=== PATIENT | male | born 1960 | race Caucasian/White ===

== ENCOUNTER 2020-12-17 20:47 | Inpatient (IN) | payer OTHER ==
[~2020-12-17] VITALS: Ht 182.9 cm; Wt 115.8 kg
--- NOTE | 2020-12-17 21:24 | Progress Note ---
Progress Note 60yo male transferred from [facility] ER due to AF RVR. Has h/o chornic AF. Cardioverted in ER x 2 due to INR therapeutic then went into SVT (has h/o SVT also) which was resistant so placed on Amiodarone drip and converted and remains stable. Dr Escobedo updated on his case. Orders placed. KALYANI GO DO Dec 17, 2020 21:24
[2020-12-17] MEDS ORDERED: LOPERAMIDE 2 MG (IMODIUM) TABLET PO PRN (21:30)
[2020-12-17] MEDS ORDERED: ONDANSETRON 4 MG/2 ML (SDV) Z0FRAN IVP PRN (21:30)
[2020-12-17] MEDS ORDERED: CALCIUM CARBONATE 500 MG (TUMS) TAB.CHEW PO PRN (21:30)
[2020-12-17] MEDS ORDERED: ACETAMINOPHEN 500 MG TAB (TYLENOL) PO PRN (21:30)
[2020-12-17] MEDS ORDERED: MELATONIN 3 MG TABLET PO PRN (21:30)
[2020-12-17] MEDS ORDERED: DOCUSATE SODIUM 100 MG (COLACE) CAP PO PRN (21:30)
[2020-12-17] MEDS ORDERED: fentaNYL INJ 100 MCG/2 ML AMP IVP PRN (21:30)
[2020-12-17] MEDS ORDERED: HYDROcodone/APAP 5 MG/325 MG (LORTAB) TAB PO PRN (21:30)
[2020-12-17] MEDS ORDERED: diphenhydrAMINE 25 MG TAB (BENADRYL) PO PRN (21:30)
[2020-12-17] MEDS ORDERED: ONDANSETRON 4 MG (ZOFRAN) ORAL DISSOLVE TAB PO PRN (21:30)
[2020-12-17] MEDS: AMIODARONE INJECTION 450 MG in D5W IV SOLUTION (EXCEL) 250 ML IV SCH (23:15)
[2020-12-18] MEDS ORDERED: dilTIAZem DRIP PRE-MIX 125 ML IV SCH
--- NOTE | 2020-12-18 00:05 | Tele-ICU Progress Note ---
Progress Note 60M with chronic afib, h/o SVT, transferred from OSH for Afib with RVR. INR was therapuetic, attempted cardioversion x2 after which converted to SVT. Placed on amio gtt and cardizem gtt and transferred for cardiology evaluation. On arrival alert, comfortable. HR still 160s, otherwise HD stable. About 10 min after arrival converted to sinus 70s, BP remained 120s/70s. Without current complaints. Amio and cardizem ongoing. Focused Exam Height, Weight, BMI Height: '" Weight: lbs. oz. kg; BMI Method: MEG FIERRO MD Dec 18, 2020 00:05
[2020-12-18] MEDS ORDERED: VIT D (01:13)
[2020-12-18] MEDS ORDERED: OMEP40CA6 PO (01:13)
[2020-12-18] MEDS ORDERED: MTP100TCR PO (01:13)
[2020-12-18] MEDS ORDERED: DILT-109 PO (01:13)
[2020-12-18] MEDS ORDERED: MULT-974 PO (01:13)
[2020-12-18] MEDS ORDERED: LISI40TA9 PO (01:13)
[2020-12-18] MEDS ORDERED: WARF-48 PO (01:13)
[2020-12-18] MEDS ORDERED: ATOR20TA49 PO (01:13)
[2020-12-18] MEDS ORDERED: METF-397 PO (01:13)
[2020-12-18] MEDS ORDERED: MAGN100T5 PO (01:13)
[2020-12-18 04:02] LABS: BASOPHILS # (AUTO) 0.1 10^3/uL (0.0-0.1); BASOPHILS % (AUTO) 0 % (0-10); EOSINOPHILS # (AUTO) 0.1 10^3/uL (0.0-0.3); EOSINOPHILS % (AUTO) 1 % (0-10); HEMATOCRIT 48 % (40-54); HEMOGLOBIN 16.3 g/dL (13.3-17.7); LYMPHOCYTES # (AUTO) 1.5 10^3/uL (1.0-4.0); LYMPHOCYTES % (AUTO) 13 % (12-44); MEAN CORPUSCULAR HEMOGLOBIN 35 pg (25-34); MEAN CORPUSCULAR HGB CONC 34 g/dL (32-36); MEAN CORPUSCULAR VOLUME 103 fL (80-99); MEAN PLATELET VOLUME 10.3 fL (9.0-12.2); MONOCYTES # (AUTO) 1.2 10^3/uL (0.0-1.0); MONOCYTES % (AUTO) 10 % (0-12); NEUTROPHILS # (AUTO) 8.5 10^3/uL (1.8-7.8); NEUTROPHILS % (AUTO) 75 % (42-75); PLATELET COUNT 179 10^3/uL (130-400); WHITE BLOOD COUNT 11.4 10^3/uL (4.3-11.0)
[2020-12-18 04:14] LABS: ALBUMIN 3.3 GM/DL (3.2-4.5); POTASSIUM 3.2 MMOL/L (3.6-5.0)
[2020-12-18 04:16] LABS: CALCIUM 8.4 MG/DL (8.5-10.1)
[2020-12-18 04:19] LABS: BILIRUBIN,TOTAL 1.9 MG/DL (0.1-1.0)
[2020-12-18 04:20] LABS: PHOSPHORUS 3.3 MG/DL (2.3-4.7)
[2020-12-18 04:21] LABS: CREATININE SERUM 0.74 MG/DL (0.60-1.30)
[2020-12-18 04:23] LABS: MAGNESIUM 1.5 MG/DL (1.6-2.4)
[2020-12-18 04:27] LABS: INR 2.4 (0.8-1.4); PROTHROMBIN TIME PATIENT 26.2 SEC (12.2-14.7)
[2020-12-18] MEDS: POTASSIUM CL 10MEQ/50ML IVPB 50 ML IV SCH (05:16)
[2020-12-18] MEDS: KCL 20 MEQ TAB (K-DUR) PO SCH (05:23)
[2020-12-18] MEDS: ALPRAZolam 0.25 MG (XANAX) TAB PO PRN (06:40)
[2020-12-18] MEDS: AMIODARONE INJECTION 450 MG in D5W IV SOLUTION (EXCEL) 250 ML IV SCH (06:48)
[2020-12-18] MEDS: MAGNESIUM 1 GM/100 ML IVPB 100 ML IV SCH ×3 (06:58→11:45)
[2020-12-18] MEDS ORDERED: KCL 20 MEQ TAB (K-DUR) PO ONE ×2 (07:00→09:00)
[2020-12-18] MEDS ORDERED: ONDANSETRON 4 MG (ZOFRAN) ORAL DISSOLVE TAB SL PRN (07:30)
[2020-12-18] MEDS ORDERED: D5 1/2 NS 1000 ML IV SOLUTION 1,000 ML IV PRN (07:30)
[2020-12-18] MEDS ORDERED: ANTACID SUSP 30 ML UDC (MYLANTA) PO PRN (07:30)
[2020-12-18] MEDS ORDERED: SENNA W/DOCUSATE (SENOKOT S) TABLET PO PRN (07:30)
[2020-12-18] MEDS ORDERED: ONDANSETRON 4 MG/2 ML (SDV) Z0FRAN IV PRN (07:30)
[2020-12-18] MEDS ORDERED: LORazepam INJ 2 MG/ML (ATIVAN) VIAL IM/IV PRN (07:30)
[2020-12-18] MEDS ORDERED: 1/2 NS IV SOLUTION 1,000 ML IV PRN (07:30)
[2020-12-18] MEDS ORDERED: LORazepam INJ 2 MG/ML (ATIVAN) VIAL ONE (07:52)
[2020-12-18] MEDS: LORazepam INJ 2 MG/ML (ATIVAN) VIAL IV PRN ×4 (07:54→18:38)
--- NOTE | 2020-12-18 08:28 | Consultation-Cardiology ---
HPI-Cardiology Cardiology Consultation Date of Consultation 12/18/20 Date of Admission Time Seen by Provider: 08:23 Indication: Paroxysmal atrial fibrillation HPI 60 years old gentleman with a history of SVT, paroxysmal atrial fibrillation, following with Dr. Arshad at [facility], had an episode of atrial fibrillation last year. Has been doing well until last week when he started having palpitation feeling his heart racing. Came to the emergency room at [facility] and noted to be in atrial fibrillation with rapid ventricular response, had a cardioversion, returned to sinus rhythm then had an SVT followed by atrial fibrillation, received a second and the third shock, returned to sinus rhythm briefly then went back to atrial fibrillation then had another episode of SVT with heart rate 160. Patient was started on amiodarone drip. I was contacted and started him on Cardizem drip. Converted to sinus rhythm, Cardizem was discontinued earlier this morning. On my evaluation he was feeling well. No ne w complaint. No chest pain or shortness of breath. No palpitation Home Medications & Allergies Allergies: Coded Allergies: No Known Drug Allergies (Unverified , 12/18/20) Home Medication List Reviewed: Yes KPB-Nqcnun-Cfopua Hx Patient Social History Smoking Status: Current Everyday Smoker Have you traveled recently?: No Alcohol Use?: Yes Immunizations Up To Date Date of Influenza Vaccine: Nov 12, 2020 Past Medical History Discussed below Review of Systems-General Review of Systems Constitutional: no symptoms reported, see HPI EENTM: see HPI, no symptoms reported Respiratory: no symptoms reported, see HPI Cardiovascular: see HPI; No chest pain; edema; No Hx of Intervention; palpitations; No syncope, No vascular heart diseas, No other Gastrointestinal: no symptoms reported, see HPI Genitourinary: no symptoms reported, see HPI Musculoskeletal: no symptoms reported, see HPI Skin: no symptoms reported, see HPI Psychiatric/Neurological: No Symptoms Reported, See HPI Reviewed Test Results Reviewed Test Results Lab Laboratory Tests Test 12/18/20 03:27 Range/Units White Blood Count 11.4 H 4.3-11.0 10^3/uL Red Blood Count 4.63 4.30-5.52 10^6/uL Hemoglobin 16.3 13.3-17.7 g/dL Hematocrit 48 40-54 % Mean Corpuscular Volume 103 H 80-99 fL Mean Corpuscular Hemoglobin 35 H 25-34 pg Mean Corpuscular Hemoglobin Concent 34 32-36 g/dL Red Cell Distribution Width 12.8 10.0-14.5 % Platelet Count 179 130-400 10^3/uL Mean Platelet Volume 10.3 9.0-12.2 fL Immature Granulocyte % (Auto) 0 % Neutrophils (%) (Auto) 75 42-75 % Lymphocytes (%) (Auto) 13 12-44 % Monocytes (%) (Auto) 10 0-12 % Eosinophils (%) (Auto) 1 0-10 % Basophils (%) (Auto) 0 0-10 % Neutrophils # (Auto) 8.5 H 1.8-7.8 10^3/uL Lymphocytes # (Auto) 1.5 1.0-4.0 10^3/uL Monocytes # (Auto) 1.2 H 0.0-1.0 10^3/uL Eosinophils # (Auto) 0.1 0.0-0.3 10^3/uL Basophils # (Auto) 0.1 0.0-0.1 10^3/uL Immature Granulocyte # (Auto) 0.1 0.0-0.1 10^3/uL Prothrombin Time 26.2 H 12.2-14.7 SEC INR Comment 2.4 H 0.8-1.4 Sodium Level 138 135-145 MMOL/L Potassium Level 3.2 L 3.6-5.0 MMOL/L Chloride Level 107 98-107 MMOL/L Carbon Dioxide Level 21 21-32 MMOL/L Anion Gap 10 5-14 MMOL/L Blood Urea Nitrogen 11 7-18 MG/DL Creatinine 0.74 0.60-1.30 MG/DL Estimat Glomerular Filtration Rate 108 BUN/Creatinine Ratio 15 Glucose Level 140 H 70-105 MG/DL Calcium Level 8.4 L 8.5-10.1 MG/DL Corrected Calcium 9.0 8.5-10.1 MG/DL Phosphorus Level 3.3 2.3-4.7 MG/DL Magnesium Level 1.5 L 1.6-2.4 MG/DL Total Bilirubin 1.9 H 0.1-1.0 MG/DL Aspartate Amino Transf (AST/SGOT) 24 5-34 U/L Alanine Aminotransferase (ALT/SGPT) 25 0-55 U/L Alkaline Phosphatase 65 40-136 U/L Total Protein 6.0 L 6.4-8.2 GM/DL Albumin 3.3 3.2-4.5 GM/DL Thyroid Stimulating Hormone (TSH) 2.25 0.35-4.94 UIU/ML Physical Exam Physical Exam Vital Signs Vital Signs - First Documented 12/17/20 12/17/20 22:53 23:05 Pulse 162 Resp 24 B/P (MAP) 132/102 Capillary Refill : Height, Weight, BMI Height: '" Weight: lbs. oz. kg; 34.61 BMI Method: General Appearance: No Apparent Distress, WD/WN Eyes: Bilateral Eye Normal Inspection, Bilateral Eye PERRL, Bilateral Eye EOMI HEENT: PERRL/EOMI, TMs Normal, Normal ENT Inspection, Pharynx Normal, Moist Mucous Membranes Neck: Full Range of Motion, Normal Inspection, Non Tender, Supple, Carotid Bruit Respiratory: Chest Non Tender, Normal Breath Sounds, No Accessory Muscle Use, No Respiratory Distress Cardiovascular: Regular Rate, Rhythm, No Edema, No Gallop, No JVD, No Murmur, Normal Peripheral Pulses Gastrointestinal: Normal Bowel Sounds, No Organomegaly, No Pulsatile Mass, Non Tender, Soft Back: Normal Inspection, No CVA Tenderness, No Vertebral Tenderness Extremity: Normal Capillary Refill, Normal Inspection, Normal Range of Motion, Non Tender, No Calf Tenderness, No Pedal Edema Neurologic/Psychiatric: Alert, Oriented x3, No Motor/Sensory Deficits, Normal Mood/Affect Skin: Normal Color, Warm/Dry Lymphatic: No Adenopathy A/P-Cardiology Admission Diagnosis Paroxysmal atrial fibrillation Hypertension Palpitation Diabetes mellitus Assessment/Plan Paroxysmal atrial fibrillation, alternating with supraventricular tachycardia. Has been maintained on Toprol-XL 100 mg daily and Coumadin 5 mg daily. He was started on Cardizem drip and amiodarone drip. Back in sinus rhythm. I will continue with amiodarone loading dose and start the oral medication and restart Toprol. Cardizem was discontinued at 6 AM. Continue to monitor for now. I had a long discussion with the patient regarding possible referral for EP evaluation and ablation as an outpatient. Peripheral edema, has been having worsening edema for the past week. Better today. I will evaluate 2D echo. Hypokalemia, could be participating in his arrhythmia. Potassium is being replaced. Continue to monitor Hypertension, controlled, monitor blood pressure, restart Toprol Diabetes mellitus, maintained on Metformin, has been under control, managed by primary care team Questionable underlying sleep apnea, discussed with the patient the possibility of referral for sleep study as an outpatient. Alcoholism, drink about a pint of scotch daily. Starting alcohol withdrawal, educated on avoiding alcohol. Obesity, BMI 34, we discussed weight loss. [id number] score of 3, maintained on Coumadin. Discussed NOACs, patient could not afford it. Maintained on Coumadin, recommended INR 2-3. Increased risk of peptic ulcer disease, started on PPI for prophylaxis MORRIS MILLS MD Dec 18, 2020 08:28
[2020-12-18] MEDS: polyethylene glycoL POWDER 17 GM (MIRALAX) PACK PO SCH ×2 (08:29→20:18)
[2020-12-18] MEDS: SENNA W/DOCUSATE (SENOKOT S) TABLET PO SCH ×2 (08:30→20:18)
[2020-12-18] MEDS ORDERED: PANTOPRAZOLE 40 MG (PROTONIX) TAB PO SCH (09:00)
[2020-12-18] MEDS ORDERED: FOLIC ACID 1 MG TAB PO SCH (09:00)
[2020-12-18] MEDS: AMIODARONE 200 MG (CORDARONE) TAB PO SCH ×2 (09:06→20:18)
[2020-12-18] MEDS: meTOprolol SUCCINATE 100 MG (TOPROL XL) TAB PO SCH (09:06)
[2020-12-18] MEDS: MAGNESIUM OXIDE (MAG-OX)400 MG TAB PO SCH ×2 (09:06→20:19)
--- NOTE | 2020-12-18 09:37 | Tele-ICU Progress Note ---
Subjective Date Seen by a Provider: Dec 18, 2020 Time Seen by a Provider: 08:55 Subjective/Events-last exam This virtual visit was conducted using real time audio/video. Thank you for asking us to see this patient for Afib/RVR. HPC: Recent events: converted to NSR PE: VSS HR 80 NSR O2 sat 95% on 5LPM NC. HEENT: No obvious masses, adenopathy or JVD. Chest: clear to auscultation. CV: RRR S1 S2 No murmur or added sounds. Abd: Non-tender. Bowel sounds Y. : Unremarkable. 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 No obvious focal findings. Extremities: 1-3 + edema. Capillary refill < 3 seconds. Skin: unremarkable. Results: Elevated WCC 11.4, INR 2.4. Decreased K, Mag. A/P: afib. Diltiazem D/Cd. On Amiodarone. Available chart/ vitals / labs / images reviewed. Video assessment done using teleICU camera, rest of exam as per RN. Monitor for afib recurrence. Critical Care: critically ill patient. Cont Amiodarone, replace lytes. Discussed with RN Hamida. Asked RN to reach out to eICU if any questions or concerns later. Time spent with patient/coordination of care with other health professionals (mins): 18 Sepsis Event Evaluation Height, Weight, BMI Height: '" Weight: lbs. oz. kg; 34.61 BMI Method: Exam Exam Patient acknowledged, consented, and participated in this virtual visit which was conducted using real time audio/video Vital Signs Date Time Temp Pulse Resp B/P (MAP) Pulse Ox O2 Delivery O2 Flow Rate FiO2 12/18/20 08:15 95 High Flow N/C 5.00 12/18/20 07:42 34.9 73 109/82 95 OxyMask 5.00 12/18/20 07:07 OxyMask 5.00 12/18/20 07:00 79 12/18/20 06:00 61 18 120/82 93 OxyMask 8.00 12/18/20 05:00 63 22 109/83 91 OxyMask 8.00 12/18/20 04:00 93 OxyMask 8.00 12/18/20 04:00 67 26 108/77 95 OxyMask 8.00 12/18/20 04:00 36.1 12/18/20 03:00 149 11 112/92 89 OxyMask 8.00 12/18/20 02:00 60 17 108/75 91 OxyMask 8.00 12/18/20 01:10 75 12/18/20 01:00 70 25 118/83 93 OxyMask 8.00 12/18/20 00:00 71 28 114/85 93 OxyMask 8.00 12/17/20 23:59 93 OxyMask 8.00 12/17/20 23:45 71 28 105/80 92 OxyMask 8.00 12/17/20 23:30 72 28 116/82 93 OxyMask 8.00 12/17/20 23:15 75 27 121/82 93 OxyMask 8.00 12/17/20 23:05 158 24 128/97 95 OxyMask 8.00 12/17/20 22:53 170 132/102 OxyMask 8.00 12/17/20 22:53 162 12/17/20 22:45 OxyMask 8.00 12/17/20 22:45 35.5 94 OxyMask 8.00 I & O 12/18/20 07:00 Intake Total 1159 ml Output Total 275 ml Balance 884 ml Height & Weight Height: '" Weight: lbs. oz. kg; 34.61 BMI Method: General Appearance: No Apparent Distress, WD/WN HEENT: PERRL/EOMI, TMs Normal, Normal ENT Inspection, Pharynx Normal, Moist M ucous Membranes Neck: Full Range of Motion, Normal Inspection, Non Tender, Supple, Carotid Bruit Respiratory: Chest Non Tender, Normal Breath Sounds, No Accessory Muscle Use, No Respiratory Distress Cardiovascular: Regular Rate, Rhythm, No Edema, No Gallop, No JVD, No Murmur, Normal Peripheral Pulses Peripheral Pulses: 1+ Dorsalis Pedis (R), 1+ Left Dors-Pedis (L) Extremity: Normal Capillary Refill, Normal Inspection, Normal Range of Motion, Non Tender, No Calf Tenderness, No Pedal Edema Neurologic/Psychiatric: Alert, Oriented x3, No Motor/Sensory Deficits, Normal Mood/Affect Skin: Normal Color, Warm/Dry Lymphatic: No Adenopathy Results Lab Laboratory Tests 12/18/20 03:27 Assessment/Plan Assessment/Plan See free text. Critical Care: Critically Ill Patient KELSIE SOLIS MD Dec 18, 2020 09:37
[2020-12-18] MEDS: LORazepam 1 MG (ATIVAN) TAB PO PRN ×2 (10:33→20:17)
--- NOTE | 2020-12-18 10:57 | History & Physical ---
LUANA WATT MED STUDENT 12/18/20 1056: History of Present Illness History of Present Illness Reason for visit/HPI CC: Afib w/ RVR, SVT HPI: Pt transferred from [facility] due to SVT. He states his symptoms of palpitations, JOSÉ, and tachycardia began a week ago on 12/12/20. He went to the [facility] yesterday presenting with Afib w/ RVR. He was cardioverted into SVT with HR 160-170's, after which he was cardioverted multiple times and continued to maintain SVT. Cardizem and Amiodarone drips were started and he was transferred here. His medications were continued and he converted to NSR overnight with HR in the 60's. Cardizem was stopped this morning, Amiodarone is continued to finish 24hr course and transitiion to PO Amiodarone. He has no complaints of chest pain/palpitations this morning, but is experiencing SOB. He is mildly diaphoretic, slightly anxious, slight hand tremors. He is placed on CIWA protocol due to history of heavy drinking approximately 1pint of liquor daily. Date of Admission Dec 17, 2020 at 22:45 Date Seen by a Provider: Dec 18, 2020 Time Seen by a Provider: 08:00 I consulted on this patient on 12/18/20 10:51 Attending Physician Araseli Go DO Admitting Physician Baljinder Regalado MD Consult Allergies and Home Medications Allergies Coded Allergies: No Known Drug Allergies (Unverified , 12/18/20) Patient Home Medication List Home Medication List Reviewed: Yes Atorvastatin Calcium (Lipitor) 20 Mg Tablet, 20 MG PO HS, (Reported) Entered as Reported by: TERESA LAWSON on 12/18/20 0113 Last Action: Reviewed Cholecalciferol (Vitamin D3) (Vitamin D3) 25 Mcg Tablet, 25 MCG PO DAILY, (Reported) Entered as Reported by: TIMBO GONZALEZ on 12/18/20 1125 Last Action: Reviewed Diltiazem HCl (Diltiazem 24Hr ER) 240 Mg Cap.er.24h, 240 MG PO DAILY, (Reported) Entered as Reported by: TIMBO GONZALEZ on 12/18/205 Last Action: Reviewed Lisinopril (Lisinopril) 40 Mg Tablet, 40 MG PO BID, (Reported) Entered as Reported by: TERESA LAWSON on 12/18/20112 Last Action: Reviewed Magnesium Oxide (Magnesium) 400 Mg Tablet, 400 MG PO HS, (Reported) Entered as Reported by: TIMBO GONZALEZ on 12/18/201124 Last Action: Reviewed Metformin HCl (Metformin HCl) 500 Mg Tablet, 500 MG PO DAILY, (Reported) Entered as Reported by: TERESA LAWSON on 12/18/20112 Last Action: Reviewed Metoprolol Succinate (Metoprolol Succinate) 100 Mg Tab.er.24h, 100 MG PO DAILY, (Reported) Entered as Reported by: TERESA LAWSON on 12/18/20112 Last Action: Reviewed Multivitamin (Multi-Vitamin Daily) 1 Each Tablet, 1 EACH PO, (Reported) Entered as Reported by: TERESA LAWSON on 12/18/20112 Last Action: Reviewed Omeprazole (Omeprazole) 40 Mg Capsule.dr, 40 MG PO DAILY, (Reported) Entered as Reported by: TERESA LAWSON on 12/18/20112 Last Action: Reviewed Warfarin Sodium (Warfarin Sodium) 5 Mg Tablet, 5 MG PO DAILY, (Reported) Entered as Reported by: TERESA LAWSON on 12/18/20112 Last Action: Reviewed Discontinued Medications Diltiazem HCl (Diltiazem ER) 240 Mg Cap.er.deg, 240 MG PO DAILY, (Reported) Discontinued Reason: Duplicate Order Entered as Reported by: TERESA LAWSON on 12/18/20112 Last Action: Discontinued Magnesium Amino Acid Chelate (Magnesium) 100 Mg Tablet, 100 MG PO DAILY, (Reported) Discontinued Reason: Prescription changed Entered as Reported by: TERESA LAWSON on 12/18/20112 Last Action: New Order [Vit D] , DAILY Discontinued Reason: New Order Prescribed by: TERESA LAWSON on 12/18/20112 Last Action: Discontinued Past Jvzzqfr-Ltrvch-Tcdvip Hx Patient Social History Marrital Status: single Employed/Student: unemployed Tobacco Use?: Yes Tobacco type used: Cigarettes Smoking Status: Current Everyday Smoker Smokeless Tobacco Frequency: Never a User Use of E-Cig and/or Vaping dev: No Use of E-Cig and/or Vaping Terrence: Never a User Substance use?: No Alcohol Use?: Yes Alcohol type: Hard Liquor Additional alcohol type: SCOTCH Alcohol Frequency: Daily Additional Alcohol Comments: 1 PINT/DAY Pt feels they are or have been: No Immunizations Up To Date Date of Influenza Vaccine: Nov 12, 2020 First/Initial COVID19 Vaccinat: 04/07/20 Second COVID19 Vaccination Da: 05/23/20 Current Status Advance Directives: No Communicates: Verbally Primary Language: Italian Preferred Spoken Language: Italian Is interpretation needed?: No Implanted or Applied Medical D: None Review of Systems Constitutional: No chills; diaphoresis; No dizziness, No fever, No malaise EENTM: No hearing loss, No blurred vision, No double vision, No vision loss Respiratory: No cough; dyspnea on exertion; No hemoptysis; short of breath Cardiovascular: No chest pain; edema (BLE, R>L +1 pitting edema); No palpitations, No syncope Gastrointestinal: No abdominal pain, No constipation, No diarrhea, No nausea, No vomiting Genitourinary: No dysuria, No frequency, No hematuria Musculoskeletal: No joint pain, No joint swelling, No muscle pain Skin: No change in color, No change in hair/nails Psychiatric/Neurological: Anxiety (slightly anxious, flat affect); Denies Headache, Denies Numbness, Denies Paresthesia, Denies Tingling; Tremors All Other Systems Reviewed Negative Unless Noted: Yes Physical Exam Vital Signs Vital Signs - First Documented 12/17/20 12/17/20 12/18/20 22:53 23:05 11:32 Pulse 162 Resp 24 B/P (MAP) 132/102 FiO2 32 Capillary Refill : Height, Weight, BMI Height: '" Weight: lbs. oz. kg; 34.61 BMI Method: General Appearance: No Apparent Distress, Anxious, Obese Eyes: Bilateral Eye Normal Inspection, Bilateral Eye PERRL, Bilateral Eye EOMI HEENT: PERRL/EOMI, Normal ENT Inspection, Pharynx Normal Neck: Full Range of Motion, Normal Inspection, Non Tender, Supple Respiratory: Chest Non Tender, Lungs Clear, Normal Breath Sounds, No Accessory Muscle Use Cardiovascular: Regular Rate, Rhythm, No Gallop, No JVD, No Murmur, Normal Peripheral Pulses Gastrointestinal: Normal Bowel Sounds, Non Tender, Soft Rectal: Deferred Back: Normal Inspection, No CVA Tenderness, No Vertebral Tenderness Extremity: Normal Capillary Refill, Normal Range of Motion, Non Tender, No Calf Tenderness, Pedal Edema (2+ RLE, trace LLE) Neurologic/Psychiatric: Alert, Oriented x3, No Motor/Sensory Deficits, Depressed Affect Skin: Normal Color, Diaphoresis (mild) Lymphatic: No Adenopathy Assessment/Plan Assessment and Plan SVT PAF Cardiology following; Cardizem stopped, Continue IV Amio until 24hr, transition to PO Amio, restart Toprol, TTE today Currently sinus rhythm rate 60's Requiring 5L HFNC to maintain O2Sat; not on O2 at home INR 2.4, continue coumadin Alcoholism CIWA protocol Hypokalemia Hypomagnesemia Supplement as needed HTN DM Obesity ARASELI GO DO 12/19/20 0607: History of Present Illness History of Present Illness Reason for visit/HPI Chief complaint: Atrial fibrillation status post cardioversion in ER x2 then SVT currently on amiodarone drip History of present illness: This is a 60-year-old white male with known chronic atrial fibrillation who presented to [place] ER with palpitations found to have A. fib with RVR and therapeutic INR maintained on Coumadin as he was cardioverted x2 then he experienced SVT which required amiodarone drip and in need of cardiology management. Dr. Escobedo has been consulted. He has been placed on alcohol withdrawal protocol due to severe alcoholism. He lives at [facility] with his parents and his mother just recently on 12/04/2020. Allergies and Home Medications Allergies Coded Allergies: No Known Drug Allergies (Unverified , 12/18/20) Patient Home Medication List Home Medication List Reviewed: Yes Atorvastatin Calcium (Lipitor) 20 Mg Tablet, 20 MG PO HS, (Reported) Entered as Reported by: TERESA LAWSON on 12/18/20 0113 Last Action: Reviewed Cholecalciferol (Vitamin D3) (Vitamin D3) 25 Mcg Tablet, 25 MCG PO DAILY, (Reported) Entered as Reported by: TIMBO GONZALEZ on 12/18/201124 Last Action: Reviewed Diltiazem HCl (Diltiazem 24Hr ER) 240 Mg Cap.er.24h, 240 MG PO DAILY, (Reported) Entered as Reported by: TIMBO GONZALEZ on 12/18/201124 Last Action: Reviewed Lisinopril (Lisinopril) 40 Mg Tablet, 40 MG PO BID, (Reported) Entered as Reported by: TERESA LAWSON on 12/18/20112 Last Action: Reviewed Magnesium Oxide (Magnesium) 400 Mg Tablet, 400 MG PO HS, (Reported) Entered as Reported by: TIMBO GONZALEZ on 12/18/201124 Last Action: Reviewed Metformin HCl (Metformin HCl) 500 Mg Tablet, 500 MG PO DAILY, (Reported) Entered as Reported by: TERESA LAWSON on 12/18/20112 Last Action: Reviewed Metoprolol Succinate (Metoprolol Succinate) 100 Mg Tab.er.24h, 100 MG PO DAILY, (Reported) Entered as Reported by: TERESA LAWSON on 12/18/20112 Last Action: Reviewed Multivitamin (Multi-Vitamin Daily) 1 Each Tablet, 1 EACH PO, (Reported) Entered as Reported by: TERESA LAWSON on 12/18/20112 Last Action: Reviewed Omeprazole (Omeprazole) 40 Mg Capsule.dr, 40 MG PO DAILY, (Reported) Entered as Reported by: TERESA LAWSON on 12/18/20112 Last Action: Reviewed Warfarin Sodium (Warfarin Sodium) 5 Mg Tablet, 5 MG PO DAILY, (Reported) Entered as Reported by: TERESA LAWSON on 12/18/20112 Last Action: Reviewed Discontinued Medications Diltiazem HCl (Diltiazem ER) 240 Mg Cap.er.deg, 240 MG PO DAILY, (Reported) Discontinued Reason: Duplicate Order Entered as Reported by: TERESA LAWSON on 12/18/20112 Last Action: Discontinued Magnesium Amino Acid Chelate (Magnesium) 100 Mg Tablet, 100 MG PO DAILY, (Reported) Discontinued Reason: Prescription changed Entered as Reported by: TERESA LAWSON on 12/18/20112 Last Action: New Order [Vit D] , DAILY Discontinued Reason: New Order Prescribed by: TERESA LAWSON on 12/18/20112 Last Action: Discontinued Past Zqnzvnt-Zzuyss-Scdyei Hx Patient Social History Marrital Status: single Employed/Student: unemployed Smoking Status: Current Everyday Smoker Alcohol Use?: Yes Alcohol Frequency: Daily Past Medical History Atrial Fibrillation, High Cholesterol, Hypertension Review of Systems Constitutional: see HPI, weakness EENTM: no symptoms reported Respiratory: no symptoms reported Cardiovascular: palpitations Gastrointestinal: no symptoms reported Genitourinary: no symptoms reported Musculoskeletal: no symptoms reported Skin: no symptoms reported Psychiatric/Neurological: No Symptoms Reported All Other Systems Reviewed Negative Unless Noted: Yes Physical Exam General Appearance: No Apparent Distress, WD/WN, Anxious, Chronically ill, Obese Eyes: Bilateral Eye Normal Inspection, Bilateral Eye PERRL, Bilateral Eye EOMI HEENT: PERRL/EOMI, Normal ENT Inspection, Pharynx Normal Neck: Full Range of Motion, Normal Inspection, Non Tender, Supple, Carotid Bruit Respiratory: Chest Non Tender, Lungs Clear, Normal Breath Sounds, No Accessory Muscle Use, No Respiratory Distress Cardiovascular: Regular Rate, Rhythm, No Edema, No Gallop, No JVD, No Murmur, Normal Peripheral Pulses Gastrointestinal: Normal Bowel Sounds, No Organomegaly, No Pulsatile Mass, Non Tender, Soft Back: Normal Inspection, No CVA Tenderness, No Vertebral Tenderness Extremity: Normal Capillary Refill, Normal Inspection, Normal Range of Motion, Non Tender, No Calf Tenderness, No Pedal Edema Neurologic/Psychiatric: Alert, Oriented x3, No Motor/Sensory Deficits, Normal Mood/Affect Skin: Normal Color, Warm/Dry Lymphatic: No Adenopathy Assessment/Plan Assessment and Plan Assessment: Atrial fibrillation with rapid ventricular response status post cardioversion x2 SVT requiring an amiodarone drip Alcoholism now with alcohol withdrawal Plan: Appreciate cardiology Amiodarone drip Problems: (1) Atrial fibrillation with rapid ventricular response Admission Diagnosis Admission Status: Inpatient Order (span 2 midnights) Reason for Inpatient Admission: A. fib and SVT with alcoholism with alcohol withdrawal Supervisory-Addendum Brief Verification & Attestation Participated in pt care: history, MDM, physical Personally performed: exam, history, MDM, supervision of care Care discussed with: Medical Student Procedures: n/a Results interpretation: Verified all documentation Verification and Attestation of Medical Student E/M Service A medical student performed and documented this service in my presence. I reviewed and verified all information documented by the medical student and made modifications to such information, when appropriate. I personally performed the physical exam and medical decision making. Araseli Go, Dec 19, 2020,06:07 LUANA WATT MED STUDENT Dec 18, 2020 10:56 ARASELI GO DO Dec 19, 2020 06:07
[2020-12-18] MEDS ORDERED: MAGN400T39 PO (11:25)
[2020-12-18] MEDS ORDERED: DILT240C91 PO (11:25)
[2020-12-18] MEDS ORDERED: CHOL10004 PO (11:25)
[2020-12-18 11:32] VITALS: BP 109/82
[2020-12-18] MEDS ORDERED: RT-ALBUTEROL/IPRATROPIUM 3 ML (DUONEB) VIAL INH PRN (11:45)
[2020-12-18] MEDS ORDERED: ADENOSINE 6 MG/2 ML (ADENOCARD) VIAL IV ONE ×2 (11:59→12:00)
[2020-12-18] MEDS ORDERED: FUROSEMIDE 40 MG/4 ML INJ (LASIX) IVP STA (12:07)
[2020-12-18] MEDS: dilTIAZem DRIP PRE-MIX 125 ML IV SCH ×2 (12:11→20:18)
[2020-12-18] MEDS ORDERED: FUROSEMIDE 40 MG/4 ML INJ (LASIX) ONE (12:15)
--- NOTE | 2020-12-18 13:07 | Diagnostic Imaging Report ---
INDICATION: Dyspnea. Baseline. FINDINGS: There is diffuse bilateral perihilar alveolar infiltrate with peripheral interstitial changes. The heart is mildly enlarged. Small bilateral pleural effusions. No pneumothorax. IMPRESSION: Cardiomegaly with bilateral infiltrates and small pleural effusions, all suggesting congestive failure. Dictated by: Dictated on workstation # [id number]
[2020-12-18] MEDS: RT-ALBUTEROL/IPRATROPIUM 3 ML (DUONEB) VIAL INH SCH ×2 (16:31→21:08)
[2020-12-18] MEDS: FUROSEMIDE 40 MG/4 ML INJ (LASIX) IVP SCH (17:04)
[2020-12-18] MEDS ORDERED: warFARin 5 MG (COUMADIN) TAB PO SCH (18:00)
[2020-12-18] MEDS ORDERED: DIGOXIN 0.25 MG/ML (LANOXIN) 2 ML AMP ONE (18:22)
[2020-12-18] MEDS ORDERED: DIGOXIN 0.25 MG/ML (LANOXIN) 2 ML AMP IV ONE ×2 (18:30)
[2020-12-19] MEDS: LORazepam 1 MG (ATIVAN) TAB PO PRN (02:34)
[2020-12-19] MEDS: ALPRAZolam 0.25 MG (XANAX) TAB PO PRN (02:35)
[2020-12-19] MEDS: RT-ALBUTEROL/IPRATROPIUM 3 ML (DUONEB) VIAL INH SCH ×2 (02:54→07:22)
[2020-12-19] MEDS: dilTIAZem DRIP PRE-MIX 125 ML IV SCH (02:54)
[2020-12-19] MEDS: KCL 20 MEQ TAB (K-DUR) PO SCH (05:31)
[2020-12-19] MEDS: POTASSIUM CL 10MEQ/50ML IVPB 50 ML IV SCH (05:31)
[2020-12-19] MEDS: MAGNESIUM 1 GM/100 ML IVPB 100 ML IV SCH (05:31)
[2020-12-19] MEDS: FUROSEMIDE 40 MG/4 ML INJ (LASIX) IVP SCH (06:07)
[2020-12-19] MEDS ORDERED: THIAMINE 100 MG (VITAMIN B-1) TAB PO SCH (07:00)
[2020-12-19] MEDS ORDERED: MULTIVIT W/MINERALS TAB (THERAGRAN M) PO SCH (07:00)
[2020-12-19] MEDS: AMIODARONE 200 MG (CORDARONE) TAB PO SCH (08:11)
[2020-12-19] MEDS: meTOprolol SUCCINATE 100 MG (TOPROL XL) TAB PO SCH (08:11)
--- NOTE | 2020-12-19 08:56 | Cardiology Progress Note ---
Subjective Date Seen by Provider: Dec 19, 2020 Time Seen by Provider: 08:52 Subjective/Events-last exam Patient is short of breath at rest, insisting on signing AMA, I had a long discussion with the patient I recommended cardiac catheterization and a LifeVest and he declined both. I have spoken to Dr. Suh in and Dr. Ching his primary stem crusher in [place]. Review of Systems General: No Chills, No Night Sweats, No Fatigue, No Malaise, No Appetite, No Other HEENT: No Head Aches, No Visual Changes, No Eye Pain, No Ear Pain, No Dysphasia, No Sinus Congestion, No Post Nasal Drip, No Sore Throat, No Other Pulmonary: Dyspnea; No Cough, No Pleuritic Chest Pain, No Other Cardiovascular: No: Chest Pain, Palpitations, Orthopnea, Paroxysmal Noc. Dyspnea, Edema, Lt Headedness, Other Objective-Cardiology Exam Last Set of Vital Signs Vital Signs 12/18/20 12/19/20 11:32 08:12 Temp 37.0 Pulse 140 Resp 18 B/P (MAP) 192/121 Pulse Ox 93 O2 Delivery Nasal Cannula O2 Flow Rate 5.00 FiO2 32 I&O Intake and Output 12/19/20 00:00 Intake Total 2859 ml Output Total 3525 ml Balance -666 ml Intake Oral 2600 ml IV Total 259 ml Output Urine Total 3525 ml # Bowel Movements 2 General: Alert, Oriented X3, Cooperative HEENT: Atraumatic, PERRLA Neck: Supple, No JVD, No Thyromegaly Lungs: Normal Air Movement, Other (Bilateral rhonchi) Heart: Regular Rate, Normal S1, Normal S2, No Murmurs Abdomen: Normal Bowel Sounds, Soft, No Tenderness, No Hepatosplenomegaly, No Masses Extremities: No Clubbing, No Cyanosis, No Edema, Normal Pulses, No Tenderness/Swelling Skin: No Rashes, No Breakdown, No Significant Lesion Neuro: Normal Gait, Normal Speech, Strength at 5/5 X4 Ext, Normal Tone, Sensation Intact Psych/Mental Status: Mental Status NL, Mood NL A/P-Cardiology Admission Diagnosis Paroxysmal atrial fibrillation Hypertension Palpitation Diabetes mellitus Assessment/Plan Paroxysmal atrial fibrillation, alternating with supraventricular tachycardia. Has been maintained on Toprol-XL 100 mg daily and Coumadin 5 mg daily. He was started on Cardizem drip and amiodarone drip. Back in sinus rhythm. Continue to have multiple episodes of atrial fibrillation/SVT with heart rate ranging between 140 and 160. I tried adenosine 12 mg without any effect on him. He reported that he does not respond to adenosine usually. I am concerned about possibility of underlying concealed pathway although it is unlikely. Recommended EP study at a tertiary care center. Congestive heart failure, acute left ventricular systolic dysfunction, unknown etiology, it could be ischemic, alcoholic or tachycardia induced cardiomyopathy. I offered him LifeVest and a cardiac catheterization, patient is declining and signing out AMA. He will need to have EP study and a LifeVest in addition to aggressive beta-blockers and ARB if can tolerate it Hypokalemia, could be participating in his arrhythmia. Potassium is being replaced. Continue to monitor Hypertension, continue on Toprol Diabetes mellitus, maintained on Metformin, has been under control, managed by primary care team Questionable underlying sleep apnea, discussed with the patient the possibility of referral for sleep study as an outpatient. Alcoholism, drink about a pint of scotch daily. Starting alcohol withdrawal, educated on avoiding alcohol. Obesity, BMI 34, we discussed weight loss. [id number] score of 4, maintained on Coumadin. Discussed NOACs, patient could not afford it. Maintained on Coumadin, recommended INR 2-3. Increased risk of peptic ulcer disease, started on PPI for prophylaxis Patient is signing out AMA, I had a long discussion with the patient, urged him to consider cardiac catheterization and he declined, I urged him to have a LifeVest prior to discharge and he declined. I discussed the management plan with Dr. Ching who instructed him to go to [place] emergency room if he continued to deteriorate. MORRIS MILLS MD Dec 19, 2020 08:56
--- NOTE | 2020-12-19 09:32 | Discharge Summary ---
Diagnosis/Chief Complaint Date of Admission Dec 17, 2020 at 22:45 Date of Discharge Dec 19, 2020 at 08:59 Discharge Diagnosis Atrial fibrillation with rapid ventricular response status post cardioversion x2 Acute supraventricular tachycardia requiring amiodarone Congestive heart failure ejection fraction 15% refuses LifeVest Left AGAINST MEDICAL ADVICE Alcoholism with withdrawal Reason Hospital Visit Chief complaint: Atrial fibrillation status post cardioversion in ER x2 then SVT currently on amiodarone drip History of present illness: This is a 60-year-old white male with known chronic atrial fibrillation who presented to [facility] with palpitations found to have A. fib with RVR and therapeutic INR maintained on Coumadin as he was cardioverted x2 then he experienced SVT which required amiodarone drip and in need of cardiology management. Dr. Escobedo has been consulted. He has been placed on alcohol withdrawal protocol due to severe alcoholism. He lives at home with his parents and his mother just recently on 12/04/2020. Discharge Summary Discharge Physical Examination Allergies: Coded Allergies: No Known Drug Allergies (Unverified , 12/18/20) Vitals & I&Os Vital Signs Date Time Temp Pulse Resp B/P (MAP) Pulse Ox O2 Delivery O2 Flow Rate FiO2 12/19/20 08:12 37.0 140 18 192/121 93 Nasal Cannula 5.00 12/18/20 11:32 32 Hospital Course Was the Problem List Reviewed?: Yes Patient had a standard hospital course in the ICU after he was moved from [facility] due to A. fib with RVR status post cardioversion in the ER x2 and SVT requiring amiodarone drip. Cardiology was consulted and echocardiogram showed ejection fraction of 15%. Patient declined LifeVest. Alcohol withdrawal protocol maintained for withdrawal. Patient was adamant about leaving and he left AGAINST MEDICAL ADVICE. Labs (last 24 hrs) Laboratory Tests 12/18/20 03:27: White Blood Count 11.4H, Red Blood Count 4.63, Hemoglobin 16.3, Hematocrit 48, Mean Corpuscular Volume 103H, Mean Corpuscular Hemoglobin 35H, Mean Corpuscular Hemoglobin Concent 34, Red Cell Distribution Width 12.8, Platelet Count 179, Mean Platelet Volume 10.3, Immature Granulocyte % (Auto) 0, Neutrophils (%) (Auto) 75, Lymphocytes (%) (Auto) 13, Monocytes (%) (Auto) 10, Eosinophils (%) (Auto) 1, Basophils (%) (Auto) 0, Neutrophils # (Auto) 8.5H, Lymphocytes # (Auto) 1.5, Monocytes # (Auto) 1.2H, Eosinophils # (Auto) 0.1, Basophils # (Auto) 0.1, Immature Granulocyte # (Auto) 0.1, Prothrombin Time 26.2H, INR Comment 2.4H, Sodium Level 138, Potassium Level 3.2L, Chloride Level 107, Carbon Dioxide Level 21, Anion Gap 10, Blood Urea Nitrogen 11, Creatinine 0.74, Estimat Glomerular Filtration Rate 108, BUN/Creatinine Ratio 15, Glucose Level 140H, Calcium Level 8.4L, Corrected Calcium 9.0, Phosphorus Level 3.3, Magnesium Level 1.5L, Total Bilirubin 1.9H, Aspartate Amino Transf (AST/SGOT) 24, Alanine Aminotransferase (ALT/SGPT) 25, Alkaline Phosphatase 65, Total Protein 6.0L, Albumin 3.3, Thyroid Stimulating Hormone (TSH) 2.25 Microbiology 12/17/20 MRSA Screen - Final, Complete MRSA not isolated Pending Labs Microbiology Date/Time Source Procedure Growth Status 12/17/20 23:00 Nasal MRSA Screen - Final MRSA not isolated Complete Laboratory Tests 12/18/20 03:27: White Blood Count 11.4, Red Blood Count 4.63, Hemoglobin 16.3, Hematocrit 48, Mean Corpuscular Volume 103, Mean Corpuscular Hemoglobin 35, Mean Corpuscular Hemoglobin Concent 34, Red Cell Distribution Width 12.8, Platelet Count 179, Mean Platelet Volume 10.3, Immature Granulocyte % (Auto) 0, Neutrophils (%) (Auto) 75, Lymphocytes (%) (Auto) 13, Monocytes (%) (Auto) 10, Eosinophils (%) (Auto) 1, Basophils (%) (Auto) 0, Neutrophils # (Auto) 8.5, Lymphocytes # (Auto) 1.5, Monocytes # (Auto) 1.2, Eosinophils # (Auto) 0.1, Basophils # (Auto) 0.1, Immature Granulocyte # (Auto) 0.1, Prothrombin Time 26.2, INR Comment 2.4, Sodium Level 138, Potassium Level 3.2, Chloride Level 107, Carbon Dioxide Level 21, Anion Gap 10, Blood Urea Nitrogen 11, Creatinine 0.74, Estimat Glomerular Filtration Rate 108, BUN/Creatinine Ratio 15, Glucose Level 140, Calcium Level 8.4, Corrected Calcium 9.0, Phosphorus Level 3.3, Magnesium Level 1.5, Total Bilirubin 1.9, Aspartate Amino Transf (AST/SGOT) 24, Alanine Aminotransferase (ALT/SGPT) 25, Alkaline Phosphatase 65, Total Protein 6.0, Albumin 3.3, Thyroid Stimulating Hormone (TSH) 2.25 Discharge Home Medications: Active Scripts Active Reported Vitamin D3 (Cholecalciferol (Vitamin D3)) 25 Mcg Tablet 25 Mcg PO DAILY Diltiazem 24Hr ER (Diltiazem HCl) 240 Mg Cap.er.24h 240 Mg PO DAILY Magnesium (Magnesium Oxide) 400 Mg Tablet 400 Mg PO HS Multi-Vitamin Daily (Multivitamin) 1 Each Tablet 1 Each PO Warfarin Sodium 5 Mg Tablet 5 Mg PO DAILY Lisinopril 40 Mg Tablet 40 Mg PO BID Metformin HCl 500 Mg Tablet 500 Mg PO DAILY Metoprolol Succinate 100 Mg Tab.er.24h 100 Mg PO DAILY Omeprazole 40 Mg Capsule.dr 40 Mg PO DAILY Lipitor (Atorvastatin Calcium) 20 Mg Tablet 20 Mg PO HS Instructions to patient/family Please see electronic discharge instructions given to patient. Diagnosis/Problems Diagnosis/Problems (1) Atrial fibrillation with rapid ventricular response KALYANI GO DO Dec 19, 2020 09:32
--- NOTE | 2020-12-19 12:41 | Progress Note ---
LUANA WATT MED STUDENT 12/19/20 1241: Progress Note Hospital course: Pt was admitted to ICU from [facility] due to SVT failing to cardiovert with multiple attempts and Cardizem/Amiodarone gtts. Cardiology was consulted on arrival. He cardioverted overnight to sinus rhythm. Cardizem was d/c'd the following morning and he was starting to transition to PO Amiodarone. He had TTE performed showing EF 15-20%, CXR showing pulmonary infiltrates. He required 5-6L HFNC throughout his stay to maintain O2sat 92-95%. He was placed on CIWA protocol due to history of alcoholism. He had multiple runs of SVT on his 2nd day, at which point he was started back on Cardizem gtt. He began to voice his desire to leave the hospital on his 2nd night. He stated that he had to go home to take care of his father and that he would see his machine inker in [place]. He left AMA on the morning of his 3rd day while refusing offers of LifeVest and cardiac catheterization by Dr. Escobedo. He had no acute issues during his stay and appeared in no apparent distress at time of departure. ARASELI GO DO 12/20/20 0513: Supervisory-Addendum Brief Verification & Attestation Participated in pt care: history, MDM, physical Personally performed: exam, history, MDM, supervision of care Care discussed with: Medical Student Procedures: n/a Results interpretation: Verified all documentation Verification and Attestation of Medical Student E/M Service A medical student performed and documented this service in my presence. I reviewed and verified all information documented by the medical student and made modifications to such information, when appropriate. I personally performed the physical exam and medical decision making. Araesli Go Dec 20, 2020,05:13 LUANA WATT MED STUDENT Dec 19, 2020 12:41 ARASELI GO DO Dec 20, 2020 05:13
== END 2020-12-19 08:59 | disposition left against medical advice (07) | DRG 308 ==
LOC: ICU 22:45
PROVIDERS: ADMIT Internal Medicine; ATTEND Internal Medicine
PROC: 5A0935A Assistance with Respiratory Ventilation, Less than 24 Consecutive Hours, High Flow/Velocity Cannula (ICD-10-PCS; principal; 2020-12-18)
DX: I48.0 Paroxysmal atrial fibrillation (principal); I50.21 Acute systolic (congestive) heart failure; F10.239 Alcohol dependence with withdrawal, unspecified; I47.1 Supraventricular tachycardia; E11.9 Type 2 diabetes mellitus without complications; I11.0 Hypertensive heart disease with heart failure; E87.6 Hypokalemia; G47.30 Sleep apnea, unspecified; E66.9 Obesity, unspecified; Z68.34 Body mass index [BMI] 34.0-34.9, adult; E83.42 Hypomagnesemia; F17.210 Nicotine dependence, cigarettes, uncomplicated; Z79.899 Other long term (current) drug therapy; Z79.84 Long term (current) use of oral hypoglycemic drugs; Z79.01 Long term (current) use of anticoagulants
CPT/HCPCS: 36415; 71045; 80053; 83735; 84100; 84443; 85025; 85610; 87081; 93005; 93306; 94640